=== PATIENT | female | born 1950 | race Caucasian/White ===

== ENCOUNTER 2021-02-17 00:08 | Emergency (ER) | payer MEDICARE, MEDICAID, SELFPAY ==
[2021-02-17 00:13] VITALS: BP 140/80; PULSE 88; RESP 16; TEMP 36.1; O2SAT 95; BMI 44.7
--- NOTE | 2021-02-17 00:55 | ED_ITS ---
HPI - General Adult General Chief complaint: General Medical Stated complaint: diabetic device teaching Time Seen by Provider: 02/17/21 00:55 Source: patient Mode of arrival: EMS History of Present Illness HPI narrative: This is a 70-year-old female who comes in via EMS as she was discharged yesterday from rehab with a new insulin pen, Lantus. Patient states that when she was at home just prior to bed she checked her sugar and got a elliot ue of 250 would which corresponded to directions for her to use 8 units. However, she was unsure of how to administer and called her friend over to assist her. She became concerned because her friend gave her 2 injections, the 1st of which patient states she did not feel the needle go when and thought that she felt liquid on her leg like her friend had ?missed?. Patient states that she did feel the needle on the 2nd stick, but then they both became concerned that she might of been overdosed. Otherwise, patient has no complaints. Related Data Allergies Allergy/AdvReac Type Severity Reaction Status Date / Time No Known Allergies Allergy Unverified 02/17/21 01:05 Review of Systems Review of Systems: Pertinent positives and negatives as stated in HPI 10 point review of systems is otherwise negative. PMFSH Past Medical History Source: nursing notes reviewed Social History Social History Advance Directives: No Advance Directives Information Provided: No Physical Exam Vital Signs: Vital Signs: Last Vital Signs Temp 97.0 F 02/17/21 00:13 Pulse 88 02/17/21 00:13 Resp 16 02/17/21 00:13 BP 140/80 H 02/17/21 00:13 Pulse Ox 95 02/17/21 00:13 Body Mass Index 44.7 VITAL SIGNS: Reviewed. GENERAL: Well developed, well nourished, in no acute distress. HEAD: Normocephalic/atraumatic EYES: PERRLA, EOMI OROPHARYNX: no oral lesions noted, posterior pharynx clear NECK: Supple, no adenopathy LUNGS: Normal breath sounds. No adventitious sounds or accessory muscle use. SpO2<95> CARDIOVASCULAR: Regular rate and rhythm without noted murmurs, no JVD or lower extremity edema. ABDOMEN: Obese, Soft, non-tender, non-distended with bowel sounds. NEUROLOGIC: Alert and oriented x 4. Strength and sensation to light touch were grossly intact x 4, baseline tremulousness. Course Course Course Narrative: 70-year-old female with history and clinical presentation consistent with concerns for having taken ?too much of her insulin?. Initial point of care here in the emergency room was 235 and then repeat at 2:17 a.m. is 210. Patient remains otherwise asymptomatic and she was provided with instructions to set an alarm for 4 hours after discharge from the emergency room to recheck her sugar and struck shins that if her sugar was less than 70 drink some juice and eat some crackers and then recheck her sugar in an hour. She acknowledges understanding for the plan and understands that she should return to the emergency room if she begins to feel dizzy, nauseous, shaky your than usual or her sugar remains low after an hour despite the juice and crackers. Medical Decision Making Lab Data Labs: Lab Results 02/17/21 Range/Units 02:13 POC Glucose 210 H (60-115) mg/dL Discharge Plan Discharge Clinical Impression: Encounter for medical assessment Patient Disposition: Home, Self-Care Instructions: Insulin Glargine (By injection) Additional Instructions: 1. Set an alarm for 4 hours to recheck your sugar level. If this level is less than 70 please drink juice and eat some crackers, and recheck your sugar in 1 hour. If your sugar remains less than 70 please return to the emergency room, or if you feel dizzy/nauseous/sweaty/more shaky than usual please call EMS. 2. Please contact your primary care provider to set up an appointment for re- evaluation and further teaching for your insulin pen. Referrals: Physician,Unknown [Primary Care Provider] - 2 days
[2021-02-17 02:17] LABS: Glucose, Whole Blood 210 mg/dL (60-115)
[2021-02-17 08:02] LABS: Glucose, Whole Blood 234 mg/dL (60-115)
== END 2021-02-17 03:11 | disposition home or self-care (01) ==
PROVIDERS: Emergency Provider Student in an Organized Health Care Education/Training Program
DX: Z76.89 Persons encountering health services in other specified circumstances (principal); E11.9 Type 2 diabetes mellitus without complications; Z79.4 Long term (current) use of insulin
CPT/HCPCS: 82947; 99283